=== PATIENT | female | born 1995 | race African-American/Black ===

== ENCOUNTER → 2024-09-25 | Outpatient (REF) | LOC: M PLAIMG 09:44 | PROVIDERS: ATTEND Internal Medicine | DX: R52 Pain, unspecified (principal) ==

== ENCOUNTER 2024-12-23 09:47 | Emergency (ER) | payer OTHER ==
[~2024-12-23] VITALS: Ht 160 cm; Wt 69.3 kg
[2024-12-23 11:03] LABS: PLATELET COUNT, AUTOMATED 181 10^3/uL (150-450)
[2024-12-23 11:24] LABS: HCG, SERUM QUALITATIVE NEGATIVE (NEGATIVE)
[2024-12-23 11:25] LABS: CALCIUM LEVEL 9.3 MG/DL (8.5-10.1); CARBON DIOXIDE LEVEL 27 MMOL/L (20-31); CHLORIDE LEVEL 104 MMOL/L (98-107); CREATININE FOR GFR 0.82 MG/DL (0.55-1.30); GLOMERULAR FILTRATION RATE > 90.0 (>60); POTASSIUM SERUM 4.0 MMOL/L (3.5-5.1); SODIUM LEVEL 141 MMOL/L (136-145)
[2024-12-23] MEDS: NS (Normal Saline) 0.9% 1,000 ML IV ONE (12:17)
[2024-12-23] MEDS: KETOROLAC 30 MG/ML 1 ML VIAL IV ONE (12:17)
[2024-12-23] MEDS ORDERED: PROC5TAB81 (12:41)
[2024-12-23] MEDS ORDERED: D 50CAP2 (12:41)
[2024-12-23] MEDS ORDERED: DULO1CAP6 (12:41)
[2024-12-23] MEDS ORDERED: ZONI50CA11 (12:41)
[2024-12-23] MEDS ORDERED: PROP120C (12:41)
[2024-12-23] MEDS ORDERED: ZONI25CA13 (12:41)
[2024-12-23] MEDS ORDERED: DICL100G10 (12:41)
[2024-12-23] MEDS ORDERED: RIZA10TA2 (12:41)
[2024-12-23] MEDS ORDERED: METH-1164 (12:41)
[2024-12-23 14:00] VITALS: BP 116/79; TEMP 97.7; O2SAT 100
== END 2024-12-23 14:09 | disposition home or self-care (01) ==
LOC: M ED 09:47
DX: G43.909 Migraine, unspecified, not intractable, without status migrainosus (principal); Z79.899 Other long term (current) drug therapy
CPT/HCPCS: 80048; 84703; 85027; 96374; 99284; J1885; J2765